=== PATIENT | male | born 2000 | race Two or more races ===

== ENCOUNTER 2020-05-18 00:56 | Inpatient (IN) | payer BC, OTHER ==
[~2020-05-18] VITALS: Ht 165.1 cm; Wt 66.4 kg
[2020-05-18 01:47] LABS: Basophils # (auto) 0 10 ^3/uL (0-0.2); Basophils % (auto) 0.1 % (0.0-2.0); Eosinophils # (auto) 0 10 ^3/uL (0-0.8); Lymphocytes # (auto) 0.6 10 ^3/uL (0.4-5.4); Lymphocytes % (auto) 2.8 % (10.0-50.0); Mean Corpuscular Hemoglobin 30.4 pg (28.0-32.0); Mean Corpuscular Hgb Conc. 34.9 g/dL (32.0-36.0); Monocytes # (auto) 0.9 10 ^3/uL (0-1.3)
[2020-05-18 01:48] LABS: Hematocrit 53.2 % (41.0-53.0); Hemoglobin 18.6 g/dL (13.5-17.5); Mean Corpuscular Volume 87.2 fL (80.0-100.0); Monocytes % (auto) 4.1 % (0.0-12.0); Neutrophils # (auto) 20.4 10 ^3/uL (1.6-8.6); Nucleated Red Blood Cells % 0.5 %; Platelet Count (auto) 380 10^3/uL (140-450); Red Cell Distribution Width 13.3 % (11.8-14.3)
[2020-05-18 02:04] LABS: Albumin 5.7 g/dL (3.4-5.0); BUN/Creatinine Ratio 9.3; Calcium 10.4 mg/dL (8.5-10.1); Potassium 3.6 mmol/L (3.5-5.1); Salicylate < 1.7 mg/dL (2.8-20.0)
[2020-05-18 02:06] LABS: Bilirubin, Total 1.1 mg/dL (0.2-1.0); Total Protein 9.7 g/dL (6.4-8.2)
[2020-05-18 02:08] LABS: Acetaminophen < 2.0 ug/mL (10-30)
[2020-05-18] MEDS ORDERED: LORazepam 2MG/ML-1ML VIAL ONE (02:47)
[2020-05-18] MEDS ORDERED: SODIUM CHLORIDE 0.9% 2,000 ML IV ONE (03:15)
[2020-05-18] MEDS ORDERED: LORazepam 2MG/ML-1ML VIAL IV ONE (06:15)
[2020-05-18] MEDS ORDERED: SODIUM CHLORIDE 0.9% 1,000 ML IVB ONE (07:15)
[2020-05-18] MEDS ORDERED: PROMETHAZINE HCL 25 MG/ML 1ML IV PRN (07:15)
[2020-05-18 09:18] LABS: Urine Bacteria NONE SEEN /hpf (None Seen); Urine Blood Negative /uL (Negative); Urine WBC <1 /hpf (0 - 3)
[2020-05-18 09:48] LABS: Alcohol, Urine < 3.0 mg/dL (0-10); Amphetamine Screen, Urine NEGATIVE (NEGATIVE); Barbiturate Scree,Urine NEGATIVE (NEGATIVE); Benzodiazephine Screen, Urine NEGATIVE (NEGATIVE); Cannabinoid Screen, Urine POSITIVE (NEGATIVE); Cocaine Screen, Urine POSITIVE (NEGATIVE); Opiate Scree,Urine NEGATIVE (NEGATIVE); Phencyclidine Screen, Urine NEGATIVE (NEGATIVE)
[2020-05-18 10:07] LABS: Magnesium 2.4 mg/dL (1.6-2.6)
[2020-05-18 10:11] LABS: Lactic Acid w/Reflex 2.7 mmol/L (0.4-2.0)
[2020-05-18] MEDS ORDERED: cefTRIAXone 1GM/50ML D5W 50 ML IV ONE (11:30)
[2020-05-18] MEDS ORDERED: NITROGLYCERIN 0.4 MG SL TAB SL PRN (11:30)
[2020-05-18] MEDS ORDERED: ACETAMINOPHEN 500 MG TAB PO PRN (11:30)
[2020-05-18] MEDS: SODIUM CHLORIDE 0.9% 1,000 ML IV SCH ×2 (11:30→12:59)
[2020-05-18] MEDS ORDERED: MORPHINE SULF INJ 2 MG/ML SYRINGE 1ML IV PRN (11:30)
[2020-05-18] MEDS: metroNIDAZOLE 500MG/100ML 100 ML IV SCH (14:36)
[2020-05-18 17:00] VITALS: BP 140/67
[2020-05-18 17:32] VITALS: BP 140/67
[2020-05-18 20:00] VITALS: BP 115/56
[2020-05-18] MEDS: ONDANSETRON HCL 4 MG/2 ML VIAL IV PRN (20:57)
[2020-05-18] MEDS: FAMOTIDINE 20 MG TAB PO SCH (21:08)
[2020-05-18 23:01] VITALS: BP 115/56
[2020-05-19] MEDS: metroNIDAZOLE 500MG/100ML 100 ML IV SCH ×2 (00:12→06:14)
[2020-05-19 05:09] VITALS: BP 129/79
[2020-05-19] MEDS: ONDANSETRON HCL 4 MG/2 ML VIAL IV PRN (06:00)
[2020-05-19 06:23] LABS: Basophils # (auto) 0 10 ^3/uL (0-0.2); Basophils % (auto) 0.1 % (0.0-2.0); Eosinophils # (auto) 0.1 10 ^3/uL (0-0.8); Eosinophils % (auto) 0.7 % (0.0-7.0); Hematocrit 42.9 % (41.0-53.0); Hemoglobin 15.6 g/dL (13.5-17.5); Lymphocytes % (auto) 9.9 % (10.0-50.0); Mean Corpuscular Hemoglobin 31.2 pg (28.0-32.0); Mean Corpuscular Hgb Conc. 36.3 g/dL (32.0-36.0); Mean Corpuscular Volume 85.9 fL (80.0-100.0); Monocytes # (auto) 0.8 10 ^3/uL (0-1.3); Monocytes % (auto) 7.8 % (0.0-12.0); Neutrophils # (auto) 7.9 10 ^3/uL (1.6-8.6); Neutrophils % (auto) 81.5 % (37.0-80.0); Platelet Count (auto) 239 10^3/uL (140-450); Red Cell Distribution Width 13.3 % (11.8-14.3); White Blood Cell 9.7 10^3/uL (4.4-10.8)
[2020-05-19 06:47] LABS: Potassium 3.6 mmol/L (3.5-5.1)
[2020-05-19 07:02] LABS: Albumin 4.1 g/dL (3.4-5.0); BUN/Creatinine Ratio 8.9; Bilirubin, Total 1.6 mg/dL (0.2-1.0); Calcium 8.9 mg/dL (8.5-10.1); Total Protein 7.4 g/dL (6.4-8.2)
[2020-05-19] MEDS: SODIUM CHLORIDE 0.9% 1,000 ML IV SCH (07:30)
[2020-05-19] MEDS: FAMOTIDINE 20 MG TAB PO SCH (08:41)
[2020-05-19] MEDS ORDERED: cefTRIAXone 1GM/50ML D5W 50 ML IV SCH (09:00)
[2020-05-19 09:04] VITALS: BP 133/71
[2020-05-19 12:39] VITALS: BP 117/72
[2020-05-19 13:30] VITALS: BP 119/77
== END 2020-05-19 13:10 | disposition home or self-care (01) | DRG 683 ==
LOC: ER 00:56 → TELE 00:57 → TELE-EAST 16:24 → TELE-CENTR 05-19 05:13
PROVIDERS: ADMIT Internal Medicine; ATTEND Internal Medicine
DX: N17.9 Acute kidney failure, unspecified (principal); F11.23 Opioid dependence with withdrawal; E87.2 Acidosis; E86.0 Dehydration; F12.90 Cannabis use, unspecified, uncomplicated; F17.200 Nicotine dependence, unspecified, uncomplicated; K52.9 Noninfective gastroenteritis and colitis, unspecified; F14.90 Cocaine use, unspecified, uncomplicated; Z20.822 Contact with and (suspected) exposure to COVID-19
CPT/HCPCS: 36415; 71046; 80053; 80307; 80320; 80329; 81001; 82150; 83605; 83690; 83735; 85025; 85652; 87040; 87426; 96361; 96365; 96375; G0378; J0696; J2405; J3490